=== PATIENT | female | born 1980 | race Asian ===

== ENCOUNTER 2017-05-09 12:00 | Outpatient (CLI) | payer OTHER ==
[~2017-05-09 12:00] MED LIST: BENADRYL25 MG PO; PREDNISONE50 MG PO
[2017-05-09 12:27] VITALS: BP 108/62
[2017-05-14] MEDS ORDERED: PRENATAL FORMU1 EAC4 PO (09:40)
== END 2017-05-09 13:35 | disposition home or self-care (01) ==
LOC: LDRP-OP → 2WEST 12:04 → LDRP-OP 07-07 13:29
DX: O30.009 Twin pregnancy, unspecified number of placenta and unspecified number of amniotic sacs, unspecified trimester (principal); Z3A.00 Weeks of gestation of pregnancy not specified
CPT/HCPCS: 59025; G0378

== ENCOUNTER 2017-05-15 05:48 | Inpatient (IN) | payer OTHER ==
[~2017-05-15] VITALS: Ht 157.5 cm; Wt 66.2 kg
[2017-05-15] VITALS (8 sets, daily range): BP systolic 102–125; BP diastolic 58–74
[~2017-05-15 05:48] MED LIST changes: +PRENATAL FORMU1 EAC4 PO
[2017-05-15 06:39] LABS: EOSINOPHIL COUNT 0.1 K/uL (0-0.3); HEMATOCRIT 32.2 % (36.0-46.0); IMMATURE GRANULOCYTE (%) 0.9 % (0.0-0.7); IMMATURE GRANULOCYTE COUNT 0.1 K/uL; INSTRUMENT ABS NEUTROPHIL CT 5.1 K/uL; LYMPHOCYTE COUNT 1.1 K/uL (1.0-2.8); MCH 30.4 PG (29.0-34.0); MCHC 33.2 G/DL (30.0-36.0); MCV 91.5 FL (83-99); MEAN PLAT.VOLUME 11.1 uM^3 (9.5-12.4); MONOCYTE (%) 8.9 % (3-12); MONOCYTE COUNT 0.6 K/uL (0-0.8); NEUTROPHIL (%) 72.7 % (45-76); NEUTROPHIL COUNT 5.1 K/uL (1.8-6.4); PLATELET COUNT 139 K/uL (156-360); RBC DIS.WIDTH-CV 14.8 % (11.8-14.6); RBC DIS.WIDTH-SD 48.9 % (39-53); RED BLOOD COUNT 3.52 M/uL (3.80-5.20)
[2017-05-16 02:37] VITALS: BP 118/68
[2017-05-16 05:53] LABS: EOSINOPHIL (%) 0.9 % (0-5); EOSINOPHIL COUNT 0.1 K/uL (0-0.3); HEMATOCRIT 28.7 % (36.0-46.0); IMMATURE GRANULOCYTE (%) 0.8 % (0.0-0.7); IMMATURE GRANULOCYTE COUNT 0.1 K/uL; INSTRUMENT ABS NEUTROPHIL CT 8.8 K/uL; MCH 30.9 PG (29.0-34.0); MCHC 33.4 G/DL (30.0-36.0); MCV 92.3 FL (83-99); MEAN PLAT.VOLUME 11.3 uM^3 (9.5-12.4); MONOCYTE (%) 7.4 % (3-12); MONOCYTE COUNT 0.8 K/uL (0-0.8); NEUTROPHIL (%) 81.5 % (45-76); NEUTROPHIL COUNT 8.8 K/uL (1.8-6.4); PLATELET COUNT 133 K/uL (156-360); RBC DIS.WIDTH-CV 14.9 % (11.8-14.6); RBC DIS.WIDTH-SD 50.4 % (39-53); RED BLOOD COUNT 3.11 M/uL (3.80-5.20); WHITE BLOOD COUNT 10.8 K/uL (4.1-10.2)
[2017-05-16 07:29] VITALS: BP 99/59
[2017-05-16 10:55] VITALS: BP 109/63
[2017-05-16 14:50] VITALS: BP 103/67
[2017-05-16 23:16] VITALS: BP 107/55
[2017-05-17 07:46] VITALS: BP 105/61
[2017-05-17 15:38] VITALS: BP 121/68
[2017-05-18 09:04] VITALS: BP 118/83
[2017-05-18 11:06] VITALS: BP 109/55
[2017-05-18 15:13] VITALS: BP 104/55
[2017-05-18 23:09] VITALS: BP 121/87
[2017-05-19 08:14] VITALS: BP 118/67
[2017-05-19] MEDS ORDERED: FERROUS SULFAT325 MG PO (12:51)
[2017-05-19] MEDS ORDERED: IBUPROFEN800 MG PO (12:51)
[2017-05-19] MEDS ORDERED: ENDOCET 5-3251 EACH PO (12:51)
[2017-05-19 14:37] VITALS: BP 126/57
== END 2017-05-19 18:20 | disposition home or self-care (01) | DRG 765 ==
LOC: 2WEST 05:48 → 2SOUTH 08:28 → 2WEST 05-19 18:20
PROVIDERS: Obstetrics & Gynecology
PROC: 10D00Z1 Extraction of Products of Conception, Low, Open Approach (ICD-10-PCS; principal; 2017-05-15)
DX: O34.211 Maternal care for low transverse scar from previous cesarean delivery (principal); O30.033 Twin pregnancy, monochorionic/diamniotic, third trimester; O32.1XX2 Maternal care for breech presentation, fetus 2; O60.14X1 Preterm labor third trimester with preterm delivery third trimester, fetus 1; O36.5930 Maternal care for other known or suspected poor fetal growth, third trimester, not applicable or unspecified; O99.02 Anemia complicating childbirth; B19.10 Unspecified viral hepatitis B without hepatic coma; O98.42 Viral hepatitis complicating childbirth; D62 Acute posthemorrhagic anemia; O60.14X2 Preterm labor third trimester with preterm delivery third trimester, fetus 2; Z37.2 Twins, both liveborn; Z3A.36 36 weeks gestation of pregnancy; Z30.2 Encounter for sterilization; Z3A.00 Weeks of gestation of pregnancy not specified
CPT/HCPCS: 85025; 86850; 86900; 86901; 88302; 90686; J0131; J0690; J1885; J2175; J2274; J2405; J2590; J3010; J7120